=== PATIENT | female | born 1995 | race Caucasian/White ===

== ENCOUNTER 2017-02-19 17:44 | Emergency (ER) | payer BC, OTHER | END 2017-02-19 18:39 | disposition home or self-care (01) | LOC: ER 17:44 | DX: K05.219 Aggressive periodontitis, localized, unspecified severity (principal); J45.909 Unspecified asthma, uncomplicated; G43.909 Migraine, unspecified, not intractable, without status migrainosus; F17.210 Nicotine dependence, cigarettes, uncomplicated ==